=== PATIENT | female | born 1975 | race Caucasian/White ===

== ENCOUNTER 2018-03-12 09:21 | Day surgery (SDC) | payer OTHER, SELFPAY ==
--- NOTE | 2018-03-11 22:24 | PCM.HP.BLA ---
History and Physical Date of Admission: 03/12/18 HISTORY OF PRESENT ILLNESS: This is a 42-year-old woman who presents with infected cystic lesions cluster in her sternal area between the breasts. She denies any recent fever. She denies any recent drainage. She was placed on Cleocin and Bactrim. She had a recent mammogram which was normal. She presents today for surgical options for treatment. PAST MEDICAL HISTORY: Cervical cancer, status post hysterectomy. paronychia right thumb. chronic osteomyelitis distal phalanx right thumb. MRSE. methicillin-resistant Staphylococcus lugdunensis. Contusion right thumb. Painful nail deformity radial aspect right thumb. PAST SURGICAL HISTORY: Partial hysterectomy. appendectomy. cholecystectomy. nasal surgery for nasal fracture. sinus surgery. excision ganglionic cyst dorsum right wrist. incision and drainage and excisional debridement paronychia right thumb and partial ostectomy of the distal phalanx right thumb for osteomyelitis - 01/05/14. Excision painful nail and nail matrix deformity radial aspect right thumb - 04/27/14. MEDICATIONS: ibuprofen. ALLERGIES: None. SOCIAL HISTORY: The patient is a smoker. The patient drinks alcohol occasionally. FAMILY HISTORY: Negative for breast cancer. Negative for skin cancer. Positive for hypertension. Positive for heart disease, diabetes and cancer. REVIEW OF SYSTEMS: GENERAL: The patient complains of fatigue. Denies fever and weight loss. EYES: Denies eye pain. ENT: Denies nasal congestion or sore throat. Had nasal fracture surgery and sinus surgeries. CARDIOVASCULAR: Denies chest pain, fatigue, lightheadedness and shortness of breath with exertion. RESPIRATORY: Denies cough and shortness of breath. The patient is a smoker. GASTROINTESTINAL: Denies nausea, vomiting, diarrhea or constipation. The patient had appendectomy. The patient had cholecystectomy. GENITOURINARY: Denies hematuria and urinary frequency. Had partial hysterectomy for cervical cancer. MUSCULOSKELETAL: Denies joint pain, back pain, stiffness, muscle weakness or arthritis. Had incision and drainage and excisional debridement of paronychia, right thumb and partial ostectomy of the distal phalanx, right thumb for osteomyelitis on January 05, 2014. Has chronic osteomyelitis to distal phalanx, right thumb, had ganglionic cyst excised, dorsum right wrist. INTEGUMENTARY: Has infected cystic lesions cluster sternal area between her breasts. NEUROLOGIC: Denies poor balance, headaches and weakness. PSYCHOLOGICAL: Denies anxiety and depression. ENDOCRINE: Denies excessive thirst or urination. HEMATOLOGIC: Denies abnormal bruising and fevers. PHYSICAL EXAMINATION: HEENT: Pupils are equal, round and reactive to light. Extraocular muscles are intact. Throat is clear. NECK: Supple. Nontender. No cervical adenopathy. CHEST WALL: In the sternal area between her breasts is a 3 cm cystic lesions cluster. No evidence of infection at the present time. No purulent drainage. Mild tenderness to palpation. No ulceration. The cystic lesions cluster are mobile. LUNGS: Clear to auscultation. HEART: Regular rate and rhythm. ABDOMEN: Soft, nontender. EXTREMITIES: Full range of motion. No axillary adenopathy. She is right-hand dominant. Radial pulses are palpable. NEUROLOGIC: Cranial nerves II-XII are grossly intact. IMPRESSION: 1. 3 cm infected cystic lesions cluster sternal area between her breasts. 2. Smoker. PLAN: Recent mammogram reviewed. No suspicious lesions noted. Recommend excision of these cystic lesions cluster and send them to Pathology for analysis to rule out carcinoma. If carcinoma is present, then further excision will be done with skin graft or skin flap reconstruction. If gross pus is found, then the wound would be packed open with a silver dressing. A wound culture will be obtained. Depending on the healing process, she may return to the operating room for delayed closure with a skin graft or a skin flap. In the meantime before surgery, she was placed on Doxycycline for any flare-ups. Surgery will be done on an outpatient basis under general anesthesia. The patient was informed of the risks and complications of the procedure, including alternatives of the surgery. These were discussed with her personally. She voices understanding and wishes to proceed. Some of the risks and complications were included in a form from the [employer]. Encouraged the patient to stop smoking as it may have deleterious effects on wound healing.
--- NOTE | 2018-03-12 | CYST_PTH ---
PATIENT: JEANNIE SIMMONS LOC: [facility] [place][id number] AGE/SX: 42/F ROOM: RE03/12/[address]: Dr. Tye Lim MD : [id number] BED: DIS: 03/12/2018 SPEC #: [id number] RECD: 03/12/18 14:57 STATUS: SANTANA GORGE #: [id number] JILLIAN: 03/12/18 00:[address]: Tye Lim DEPT: SURGICAL PATHOLOGY RECD BY: Jeff Herrmann ENTERED: 03/12/18 14:57 SP TYPE: Cyst OTHR DR: MD López Turcios MD Tissues: CYST Procedures: Surgery Specimen Level III HEADER OPERATION: Excision cystic lesions cluster, sternum PRE-OP DIAGNOSIS: Cystic lesions cluster sternal area between breasts TISSUE SUBMITTED: Infected cystic lesions cluster sternum MICROSCOPIC DIAGNOSIS Infected cystic lesion, clusters, sternum, excision: Epidermal inclusion cyst with acute and chronic inflammation. SJ:isaac 03/15/18 MICROSCOPIC DESCRIPTION Slides are reviewed. GROSS DESCRIPTION Received in fixative is one container labeled with the patient's name and designated infected cystic lesions cluster sternum. The specimen consists of a piece of whitlock-white skin with underlying tissue measuring 4 x 1 cm and up to 4 cm in thickness. A suture is noted at one tip of the skin. The suture is presumed to be at 12 o?clock position. The specimen is inked as follows: 12 to 6 o?clock including 3 o?clock ? black, 6 to 12 o?clock including 9 o?clock ? blue. Sections reveal a cystic area measuring 1 cm in greatest dimension. No mass lesion is identified. Pilling Machine Operator sections are submitted in two cassettes. / EVON:isaac 03/12/18 TC:5 [facility]: [id number]
[2018-03-12 09:56] VITALS: BP 120/70; PULSE 89; RESP 18; TEMP 36.9; O2SAT 93; BMI 37.0
[2018-03-12] MEDS: Cefazolin 2 GM in 0.9% Normal Saline 100 ML IV (11:15)
[2018-03-12] MEDS: Mupirocin Ointment 22gm Tube 1 APPLIC (12:00)
--- NOTE | 2018-03-12 12:06 | OP.PN_ITS ---
Immediate Post-Op Note Date of Procedure: 03/12/18 Primary Surgeon/Physician: Tye Lim carpet inspector finished: None Pre-Operative Diagnosis: 1. 3 cm infected cystic lesions cluster sternal area between her breasts. 2. Smoker. Post-Operative Diagnosis: Same. Surgery/Procedure Performed:: Excision 3 cm infected cystic lesions cluster sternal area between her breasts with 5.5 cm layered closure. Description of Surgical Findings:: This is a 42-year-old woman who presents with infected cystic lesions cluster in her sternal area between the breasts. She denies any recent fever. She denies any recent drainage. She was placed on Cleocin and Bactrim. She had a recent mammogram which was normal. Today the patient underwent excision 3 cm infected cystic lesions cluster sternal area between her breasts with 5.5 cm layered closure. I used Joaquín absorbable hemostat. Reference Number - [id number]. Lot Number - [id number]. Expiration - October 29, 2022. Estimated Blood Loss: 20 ml. Specimen's removed: Infected cystic lesions cluster sternal area between her breasts to Pathology and Microbiology. Drains: None. Type of Anesthesia:: General - Admit VTE Documentation VTE Present on Admission: No VTE Mechan Device Prophylaxis: SCD's VTE Pharm Prophylaxis ordered?: No
[2018-03-12 12:09] VITALS: BP 114/69; BP 120/70; PULSE 89; RESP 18; TEMP 36; O2SAT 92
--- NOTE | 2018-03-12 12:12 | PCM.DC ---
You will use the following diet at home:: No restrictions Discharge Activity: May not drive while taking narcotic pain medications., May Shower - in two days., - - no heavy lifting. wear compression sports bra. May shower in (days): 2 May resume sexual activity in: No Restrictions Weight Bearing Status: Weight bearing as tolerated Lifting Restrictions: 20 lbs. Additional Activity Instructions:: wear compression sports bra. Call your doctor if your incision/area has: Continuous Slow Oozing, Sudden Increased Bleeding, Increased Pain/ Swelling, Increased Redness, Foul Smelling Discharge, Swelling at the incision site Call your doctor if you observe: Fever of 101 or Higher, Coldness, Increased Pain, Shortness of breath, Chest pain, Calf discomfort, Uncontrolled pain Suture Line Care: - - after dressing removed in two days, apply antibiotic ointment to suture line daily. Change Dressing in (Days):: 2 - may remove dressing in two days. Cleanse incision/area with: - - may get incision wet in the shower in two days. Allergies/Adverse Reactions: Allergies No Known Allergies Allergy (Verified 03/08/18 11:45) Medications to take at Discharge Dextroamphetamine/Amphetamine [Adderall Xr 30 mg Capsule] 30 mg PO DAILY 10/05/17 Doxycycline Hyclate 100 mg PO BID #28 cap 03/12/18 Oxycodone HCl/Acetaminophen [Percocet 5/325] 1 - 2 tab PO 4X/DAY PRN PRN 4 Days #30 tab 03/12/18 The following prescriptions were given: Oxycodone HCl/Acetaminophen [Percocet 5/325] 1 - 2 tab PO 4X/DAY PRN PRN 4 Days #30 tab PRN Reason: Pain Doxycycline Hyclate 100 mg PO BID #28 cap Primary Care Physician: López Ariza MD [Primary Care Provider] - Please Follow Up With: Tye Lim MD When: one week. call [phone] for appt. Proposed Discharge Date: 03/12/18
[2018-03-12 12:15] VITALS: BP 120/70; BP 122/76; PULSE 67; RESP 16; O2SAT 92
--- NOTE | 2018-03-12 12:15 | DCINST_ITS ---
You will use the following diet at home:: No restrictions Discharge Activity: May not drive while taking narcotic pain medications., May Shower - in two days., - - no heavy lifting. wear compression sports bra. May shower in (days): 2 May resume sexual activity in: No Restrictions Weight Bearing Status: Weight bearing as tolerated Lifting Restrictions: 20 lbs. Additional Activity Instructions:: wear compression sports bra. Call your doctor if your incision/area has: Continuous Slow Oozing, Sudden Increased Bleeding, Increased Pain/ Swelling, Increased Redness, Foul Smelling Discharge, Swelling at the incision site Call your doctor if you observe: Fever of 101 or Higher, Coldness, Increased Pain, Shortness of breath, Chest pain, Calf discomfort, Uncontrolled pain Suture Line Care: - - after dressing removed in two days, apply antibiotic ointment to suture line daily. Change Dressing in (Days):: 2 - may remove dressing in two days. Cleanse incision/area with: - - may get incision wet in the shower in two days. Allergies/Adverse Reactions: Allergies No Known Allergies Allergy (Verified 03/08/18 11:45) Medications to take at Discharge Dextroamphetamine/Amphetamine [Adderall Xr 30 mg Capsule] 30 mg PO DAILY Doxycycline Hyclate 100 mg PO BID #28 cap 03/12/18 Oxycodone HCl/Acetaminophen [Percocet 5/325] 1 - 2 tab PO 4X/DAY PRN PRN 4 Days #30 tab 03/12/18 The following prescriptions were given: Oxycodone HCl/Acetaminophen [Percocet 5/325] 1 - 2 tab PO 4X/DAY PRN PRN 4 Days #30 tab PRN Reason: Pain Doxycycline Hyclate 100 mg PO BID #28 cap Primary Care Physician: López Ariza MD [Primary Care Provider] - Please Follow Up With: Tye Lim MD When: one week. call [phone] for appt. Proposed Discharge Date: 03/12/18
[2018-03-12 12:30] VITALS: BP 120/70; BP 122/74; PULSE 65; RESP 16; O2SAT 95
[2018-03-12 12:38] VITALS: BP 118/86; BP 120/70; PULSE 66; RESP 16; TEMP 35.9; O2SAT 98
[2018-03-12 13:00] VITALS: BP 120/70
--- NOTE | 2018-03-12 17:52 | PCM.OPRPT ---
Report of Operation Date of Procedure: 03/12/18 Pre-Operative Diagnosis: 1. 3 cm infected cystic lesions cluster sternal area between her breasts. 2. Smoker. Post-Operative Diagnosis: Same. Surgery/Procedure Performed:: Excision 3 cm infected cystic lesions cluster sternal area between her breasts with 5.5 cm layered closure. Description of Surgical Findings:: This is a 42-year-old woman who presents with infected cystic lesions cluster in her sternal area between the breasts. She denies any recent fever. She denies any recent drainage. She was placed on Cleocin and Bactrim. She had a recent mammogram which was normal. The patient was informed of the risks and complications of the procedure, including alternatives of the surgery. These were discussed with her personally. She voices understanding and wishes to proceed. Some of the risks and complications were included in a form from the [employer]. Encouraged the patient to stop smoking as it may have deleterious effects on wound healing. I used Joaquín absorbable hemostat. Reference Number - [id number]. Lot Number - [id number]. Expiration - October 29, 2022. ticket chopper assembler: None Type of Anesthesia:: General Specimen's removed: Infected cystic lesions cluster sternal area between her breasts to Pathology and Microbiology. Drains: None. Estimated Blood Loss (mL): 20 ml. Description of Procedure: Patient was taken to OR in supine position and placed under general anesthesia. Her sternal area was prepped and draped in the usual fashion. SCD's were placed for DVT prophylaxis. Perioperative antibiotics were given intravenously. Using xylocaine with epinephrine, the sternal area was infiltrated. After waiting 5 minutes for the anesthetic to take effect, a longitudinal elliptical incision was made down into the subcutaneous tissue. There was a lot of scar tissue present. No pus was seen. The scar tissue extended down to the muscular fascia and periosteum. After excision of this cystic lesions cluster, a suture was placed at 12 oclock position for pathology orientation. The cystic lesions cluster was sent to Pathology for analysis to rule out carcinoma and to Microbiology for culture. A positive culture will necessitate antibiotic therapy. The cystic lesions cluster was excised with a couple mm margin making it a 3.4 cm excision. Hemostasis was obtained with electrocautery. The wound was irrigated with saline. I then sprayed Joaquín absorbable hemostat into the wound to minimize seroma formation. The wound was then closed in a multiple layered fashion with 3-0 Monocryl interrupted sutures for the deep subcutaneous tissue. 3-0 Monocryl sutures were used to approximate the deep dermis and subcutaneous tissue. The skin was approximated with 4-0 Prolene vertical mattress interrupted sutures. The length of the wound closure was 5.5 cm. Antibiotic ointment was placed on the suture line followed by 4x4 gauze compression dressing. She tolerated the procedure well and was sent to PACU in satisfactory condition. She will be sent home on antibiotics and pain medication. She will followup in the office in a week for a wound check and for discussion of the pathology report and microbiology report. The sutures may be removed in a couple of weeks. Grafts/Implants Used: None. - Complications None. - Admit VTE Documentation VTE Present on Admission: No VTE Mechan Device Prophylaxis: SCD's VTE Pharm Prophylaxis ordered?: No Code Visit Surgery Charges CPT - 97294 ICD-10 - R22.2, L03.313, F17.200
--- NOTE | 2018-03-13 19:53 | OP.PCM_ITS ---
Report of Operation Date of Procedure: 03/12/18 Pre-Operative Diagnosis: 1. 3 cm infected cystic lesions cluster sternal area between her breasts. 2. Smoker. Post-Operative Diagnosis: Same. Surgery/Procedure Performed:: Excision 3 cm infected cystic lesions cluster sternal area between her breasts with 5.5 cm layered closure. Description of Surgical Findings:: This is a 42-year-old woman who presents with infected cystic lesions cluster in her sternal area between the breasts. She denies any recent fever. She denies any recent drainage. She was placed on Cleocin and Bactrim. She had a recent mammogram which was normal. The patient was informed of the risks and complications of the procedure, including alternatives of the surgery. These were discussed with her personally. She voices understanding and wishes to proceed. Some of the risks and complications were included in a form from the [employer]. Encouraged the patient to stop smoking as it may have deleterious effects on wound healing. I used Joaquín absorbable hemostat. Reference Number - [id number]. Lot Number - [id number]. Expiration - October 29, 2022. electrical research engineer: None Type of Anesthesia:: General Specimen's removed: Infected cystic lesions cluster sternal area between her breasts to Pathology and Microbiology. Drains: None. Estimated Blood Loss (mL): 20 ml. Description of Procedure: Patient was taken to OR in supine position and placed under general anesthesia. Her sternal area was prepped and draped in the usual fashion. SCD's were placed for DVT prophylaxis. Perioperative antibiotics were given intravenously. Using xylocaine with epinephrine, the sternal area was infiltrated. After waiting 5 minutes for the anesthetic to take effect, a longitudinal elliptical incision was made down into the subcutaneous tissue. There was a lot of scar tissue present. No pus was seen. The scar tissue extended down to the muscular fascia and periosteum. After excision of this cystic lesions cluster, a suture was placed at 12 oclock position for pathology orientation. The cystic lesions cluster was sent to Pathology for analysis to rule out carcinoma and to Microbiology for culture. A positive culture will necessitate antibiotic therapy. The cystic lesions cluster was excised with a couple mm margin making it a 3.4 cm excision. Hemostasis was obtained with electrocautery. The wound was irrigated with saline. I then sprayed Joaquín absorbable hemostat into the wound to minimize seroma formation. The wound was then closed in a multiple layered fashion with 3-0 Monocryl interrupted sutures for the deep subcutaneous tissue. 3-0 Monocryl sutures were used to approximate the deep dermis and subcutaneous tissue. The skin was approximated with 4-0 Prolene vertical mattress interrupted sutures. The length of the wound closure was 5.5 cm. Antibiotic ointment was placed on the suture line followed by 4x4 gauze compression dressing. She tolerated the procedure well and was sent to PACU in satisfactory condition. She will be sent home on antibiotics and pain medication. She will followup in the office in a week for a wound check and for discussion of the pathology report and microbiology report. The sutures may be removed in a couple of weeks. Grafts/Implants Used: None. - Complications None. - Admit VTE Documentation VTE Present on Admission: No VTE Mechan Device Prophylaxis: SCD's VTE Pharm Prophylaxis ordered?: No Code Visit Surgery Charges CPT - 14311 ICD-10 - R22.2, L03.313, F17.200
== END 2018-03-12 13:18 | disposition home or self-care (01) ==
LOC: SDC 09:21 → AC 09:24
PROVIDERS: Family Provider Family Medicine; PCP Family Medicine; Visit Provider Surgery
PROC: (CPT 21899; principal; 2018-03-12 10:30)
DX: L72.0 Epidermal cyst (principal); M79.7 Fibromyalgia; K21.9 Gastro-esophageal reflux disease without esophagitis; Z90.49 Acquired absence of other specified parts of digestive tract; F17.200 Nicotine dependence, unspecified, uncomplicated; Z90.710 Acquired absence of both cervix and uterus; Z85.41 Personal history of malignant neoplasm of cervix uteri
CPT/HCPCS: 21899; 87070; 87075; 87102; 87205; 87206; 88304; J7120; J2405

== ENCOUNTER → 2018-04-14 18:27 | Outpatient (CLI) | payer OTHER, SELFPAY | PROVIDERS: Visit Provider Surgery | DX: T81.89XA Other complications of procedures, not elsewhere classified, initial encounter (principal); F17.200 Nicotine dependence, unspecified, uncomplicated; L72.0 Epidermal cyst; Z80.3 Family history of malignant neoplasm of breast | CPT/HCPCS: 87070; 87075; 87077; 87186; 87205 ==

== ENCOUNTER → 2018-06-09 15:58 | Outpatient (CLI) | payer OTHER, SELFPAY | PROVIDERS: Visit Provider Surgery | DX: T81.89XA Other complications of procedures, not elsewhere classified, initial encounter (principal); L03.313 Cellulitis of chest wall; R22.2 Localized swelling, mass and lump, trunk; L72.0 Epidermal cyst | CPT/HCPCS: 87070; 87075; 87076; 87205 ==

== ENCOUNTER 2022-01-23 09:38 | Day surgery (SDC) | payer OTHER, SELFPAY ==
--- NOTE | 2022-01-21 09:51 | PCM.HP.BLA ---
History and Physical Date of Admission: 01/23/22 The patient is a 46 year old female presenting for pre-operative visit. She is scheduled for?Left labiaplasty, removal of vulvar cyst? possible right labiaplasty for?Labial pain, hypertrophy and vulvar inclusion cysts? on?01/23/22. ?Previous surgical date canceled due to weather. ?Procedure discussed along with risks, benefits and complications. ?Other alternatives discussed for management. Consent form signed??Yes.? PAST MEDICAL HISTORY ? ? ? PAST MEDICAL HISTORY Diagnosis Date ? Abdominal pain, unspecified site ? ? Acute gastritis without mention of hemorrhage ? ? Duodenitis without mention of hemorrhage ? ? Dysplasia of cervix, unspecified ? ? Major depressive disorder, recurrent episode, mild (HCC) ? ? ? Nonspecific abnormal finding in stool contents ? ? Unspecified asthma(493.90) ? PAST SURGICAL HISTORY ? PAST SURGICAL HISTORY Procedure Laterality Date ? ADENOIDECTOMY PRIMARY <AGE 13 ? ? ? Adenoidectomy ? AMP F/TH 11/03 JT/PHALANX W/NEURECT W/DIR CLSR Right ? ? Partial Amputation ? APPENDECTOMY ? 2003 ? BX/EXC LYMPH NODE OPEN SUPERFICIAL ? ? ? R AXILLARY ? DELIVERY ONLY ? ? ? , low cervical ? COLONOSCOPY FLX DX W/COLLJ SPEC WHEN PFRMD ? ? normal to hepatic flexure ? CONIZATION CERVIX W/WO D&C RPR ELTRD EXC ? ? ? LEEP-Cervix ? EGD TRANSORAL BIOPSY SINGLE/MULTIPLE ? ? duodenitis, gastritis ? FOREARM/WRIST SURGERY UNLISTED ? ? ? LEFT ? LAPAROSCOPY SURG CHOLECYSTECTOMY ? 12/07 ? Cholecystectomy, lap ? LIG/TRNSXJ FLP TUBE ABDL/VAG APPR UNI/BI ? ? ? Tubal ligation ? PAST SURGICAL HISTORY OF N/A 03/2018 ? Chest, Dr. Lim (Knot on chest) ? REDUCTION FOREHEAD; CONTOURING ONLY ? ? ? RHINP PRIM LAT&ALAR CRTLGS&/ELVTN NASAL TI ? ? ? Rhinoplasty ? TONSILLECTOMY PRIMARY/SECONDARY <AGE 13 ? ? ? Tonsillectomy ? VAGINAL HYSTERECTOMY UTERUS 250 GM/< ? 08/06 ? Hysterectomy, vaginal ? ? ? CURRENT MEDICATIONS ? Current Outpatient Medications Medication Sig Dispense Refill ? amphetamine-dextroamphetamine XR (ADDERALL XR) 20 mg 24 hr capsule Take 2 capsules by mouth once daily for 30 days. 60 capsule 0 ? omeprazole (PRILOSEC) 20 mg capsule Take 1 capsule by mouth once daily. 30 capsule 5 ? ibuprofen (MOTRIN) 800 mg tablet Take 1 tablet by mouth every 8 hours as needed for Pain. 28 tablet 0 ? No current facility-administered medications for this visit. ? ? ALLERGIES:?Seasonal Allergies ? PERSONAL HISTORY:? SOCIAL HISTORY Social History ? Tobacco Use ? Smoking status: Current Every Day Smoker ? ? Packs/day: 1.00 ? ? Years: 15.00 ? ? Pack years: 15.00 ? ? Types: Cigarettes ? Smokeless tobacco: Never Used ? Tobacco comment: patient cutting down on cigarettes Vaping Use ? Vaping Use: Never used Substance Use Topics ? Alcohol use: Yes ? ? Comment: socially ? Drug use: No ?? ? FAMILY HISTORY:? FAMILY HISTORY ? FAMILY HISTORY Problem Relation Age of Onset ? Diabetes Mother ? ? Cancer Mother ?Cervical or Uterine ? Diabetes Father ? ? Heart Father ?quad. bypass ? Coronary Artery Disease Father ? ? Alcohol/Drug Sister ? ? Kidney Disease Sister ? ? Diabetes Sister ? ? other (Other) Sister ?Twin sister ? Breast Cancer Maternal Grandmother ? from this ? Cancer Maternal Grandfather ?legionaires disease- from this ? Heart Paternal Grandmother ?CHF ? Heart Paternal Grandfather ? ? Breast Cancer Paternal Aunt ? ? Prostate Cancer Paternal Uncle ? ? ? REVIEW OF SYMPTOMS: negative except as noted above ? PHYSICAL EXAMINATION: ? BP 124/72 Ht 5' 5 (1.651 m) Wt 213 lb (96.6 kg) BMI 35.45 kg/m? ? GENERAL:??The patient is well nourished, well hydrated in no acute distress. ?, The patient is oriented to time, place, and person. NECK: full range of motion? Heart: regular rate and rhythm Lungs: clear b/l to auscultation ? IMPRESSION:?Left labial pain, hypertrophy, vaginal inclusion cysts ? PLAN:???Left labiaplasty, removal of vulvar cysts, possible right labiaplasty ? Pt has been counseled on risks/benefits and alternatives of surgery including but not limited to anesthesia, bleeding, infection,?post operative pain, recurrence of cysts. ? COVID TESTING pre op Pre and post op instructions reviewed Post op pain mgmt with motrin reviewed?, sitz bath? ? I have reviewed and updated past medical and surgical history, medications and allergies? Isabel Olson MD ? ?1:53 PM Office Visit on 01/17/2022 Office Visit on 01/17/2022 Note shared with patient
[2022-01-23] VITALS (8 sets, daily range): BP systolic 98–136; BP diastolic 7–73; PULSE 58–86; RESP 16–18; TEMP 35.9–36.8; O2SAT 94–100; BMI 35.7
[2022-01-23] MEDS: Lactated Ringers 1,000 ML 15 ML IV (10:27)
--- NOTE | 2022-01-23 10:35 | PCM.DC ---
Discharge Instructions Diet Discharge Diet: No restrictions Activity Discharge Activity: Return to Normal Activity May resume sexual activity in: 2 weeks Lifting Restrictions: 25 Dressing / Incision Call your doctor if your incision/area has: Continuous Slow Oozing, Sudden Increased Bleeding, Increased Pain/ Swelling, Increased Redness, Foul Smelling Discharge and Swelling at the incision site Call your doctor if you observe: Fever of 101 or Higher and Inability to urinate Additional Dressing/Incision Instructions:: may do sitz bath Follow Up Care Please Follow Up With: Isabel Anthony MD When: 2 weeks Test Results: Test results from this visit will be discussed in further detail at your follow-up appointment, if applicable. Discharge Plan Admission Attending Provider: Isabel Anthony Primary Care Provider: López Ariza Discharge Orders/Prescriptions Prescriptions: No Action dextroamphetamine-amphetamine 30 MG capsule,extended release 24hr 30 mg PO DAILY RF: 0 ibuprofen 400 mg Tablet 400 mg PO Q6H PRN (Reason: Pain) RF: 0 omeprazole magnesium [Prilosec OTC] 20 mg Tablet,Delayed Release (Dr/Ec) 20 mg PO DAILY PRN (Reason: Indigestion) RF: 0
--- NOTE | 2022-01-23 10:36 | PCM.OPRPT ---
Problems Associated Problem List Diagnoses (1) Labial hypertrophy: (2) Labial pain: (3) Vulvar cysts: Report of Operation Date of Procedure: 01/23/22 Pre-Operative Diagnosis: labial hypertrophy, labial pain, vulvar cysts Post-Operative Diagnosis: same Surgery/Procedure Performed:: Left labioplasty, removal of vulvar inclusion cysts (5) Description of Surgical Findings:: Multiple vulvar inclusion cyst. The left labia minora with hypertrophied tissue. Surgeon: Isabel Anthony Type of Anesthesia: Local and MAC Specimen's removed: Portion of left labia minora Estimated Blood Loss (mL): 5 Fluids Replaced: 500 Description of Procedure: Pt prepped and draped in normal sterile fashion. legs placed in yellow fin stirrups. Left labia minora grasped with allis clamps. Injection of 1% lidocaine with epinephrine placed. Metzenbaum used to excise excess labia tissue. labia minora was sutured using 3-0 rapide in running fashion. Hemostasis appreciated. Multiple vulvar inclusion cyst were appreciated. 5 in total were incised and drained. Large cyst in the right groin multiple small on the left labia majora as well as on the right labia majora. These areas were injected with 1% lidocaine with epinephrine small incision was made and thick white material was expelled. The right groin lesion 1 interrupted 3-0 Rapide suture was placed. Excellent stasis appreciated throughout. Instrument lap and needle count were correct x2. Vaginal sweep was negative. Grafts/Implants Used: none Procedure Start Time: 10:56 Procedure Stop Time: 11:11 Complications None Admit VTE Documentation VTE Present on Admission: Yes VTE Mechan Device Prophylaxis: SCD's VTE Pharm Prophylaxis ordered?: No Reason prophylaxis not ordered:: Procedure Not Indicated
[2022-01-23 10:46] LABS: Hematocrit 47.2 % (37-47); Hemoglobin 16.2 g/dL (12.0-15.0); Mean Corp Hgb Conc 34.3 g/dL (32-36); Mean Corpuscular Hgb 31.8 pg (27.0-32.0); Mean Corpuscular Volume 92.7 fL (81-99); Mean Platelet Vol. 9.1 fl (6.2-12.0); Platelet Count 340 K/mm3 (150-450); RBC Distribution Width CV 11.8 % (11.6-14.6); RBC Distribution Width SD 40.7 fl (35.1-43.9); Red Blood Count 5.09 M/mm3 (4.2-5.4); White Blood Count 9.9 K/mm3 (4.4-11.0)
[2022-01-23] MEDS: Lidocaine 1% /Epi 1:100 (50ml) 50 ML VIAL (11:08)
--- NOTE | 2022-01-23 11:15 | SOF_PTH ---
PATIENT: JEANNIE SIMMONS LOC: [facility] [place] U#:[id number] AGE/SX: 46/F ROOM: RE01/23/[address]: Dr. Isabel Anthony, MDDOB: 1975 BED: DIS: 01/23/2022 SPEC #: [id number] RECD: 01/23/22 12:30 STATUS: SANTANA PACEMaximo #: [id number] JILLIAN: 01/23/22 11:[address]: Isabel Anthony DEPT: SURGICAL PATHOLOGY RECD BY: Kimberly St ENTERED: 01/23/22 12:59 SP TYPE: SOFT TISS OTHR DR: López Ariza MD Tissues: Labium, NOS Procedures: Surgery Specimen Level IV HEADER OPERATION: Labiaplasty, removal multiple vulvar inclusion cysts PRE-OP DIAGNOSIS: Left labial pain, hypertrophy, vaginal inclusion cysts TISSUE SUBMITTED: Left labia minora tissue MICROSCOPIC DIAGNOSIS Left labia minora tissue: Multiple inflamed follicular cysts. Epidermal inclusion cysts. Focal mild chronic inflammation. EVON:isaac 01/24/2022 MICROSCOPIC DESCRIPTION Slides are reviewed. GROSS DESCRIPTION Received in fixative is one container labeled with the patient's name and designated left labia tissue, labia minora. The specimen consists of two pieces of whitlock-brown skin measuring 5.5 x 1 x 1 cm and 2 x 0.7 x 0.2 cm. Both pieces are inked, serially sectioned and submitted entirely in three cassettes. / EVON:isaac 01/23/2022 TC:5 CPT: 40343
== END 2022-01-23 23:59 | disposition home or self-care (01) ==
LOC: SDC 09:45 → AC 09:46
PROVIDERS: PCP Family Medicine; Referring Provider Obstetrics & Gynecology; Visit Provider Obstetrics & Gynecology
PROC: (CPT 56620; principal; 2022-01-23 11:00)
DX: N90.7 Vulvar cyst (principal); J45.909 Unspecified asthma, uncomplicated; F17.210 Nicotine dependence, cigarettes, uncomplicated; Z87.19 Personal history of other diseases of the digestive system; L72.0 Epidermal cyst; Z85.41 Personal history of malignant neoplasm of cervix uteri; N90.60 Unspecified hypertrophy of vulva
CPT/HCPCS: 56620; 00906; 56501; 85027; 87426; 88305; J7120; J2405